=== PATIENT | male | born 1960 | race Two or more races ===

== ENCOUNTER 2020-05-18 08:37 | Emergency (ER) | payer MEDICAID, OTHER ==
[~2020-05-18] VITALS: Ht 175.3 cm; Wt 72.6 kg
[2020-05-18 09:42] VITALS: BP 99/55
== END 2020-05-18 11:52 | disposition home or self-care (01) ==
LOC: ER 08:37
DX: U07.1 COVID-19 (principal)
CPT/HCPCS: 36415; 71045; 87426

== ENCOUNTER 2020-05-21 20:12 | Emergency (ER) | payer MEDICAID ==
[~2020-05-21] VITALS: Ht 167.6 cm; Wt 81.6 kg
[2020-05-21 20:24] VITALS: BP 130/79
== END 2020-05-21 21:56 | disposition left against medical advice (07) ==
LOC: ER 20:12
DX: R06.02 Shortness of breath (principal); Z53.21 Procedure and treatment not carried out due to patient leaving prior to being seen by health care provider